=== PATIENT | female | born 1970 | race Asian ===

== ENCOUNTER → 2017-03-21 | Outpatient (CLI) | payer BC ==
[2017-03-21 08:08] LABS: Basophils # (auto) 0 uL; Basophils % (auto) 0.5 % (0.0-2.0); DEFINITIVE VIEW TRANSMISSION; Eosinophils # (auto) 0.1 uL; Eosinophils % (auto) 1.9 % (0.0-7.0); Hemoglobin 9.8 g/dL (12.2-16.2); Mean Corpuscular Hgb Conc. 31.3 g/dL (32.0-36.0); Monocytes # (auto) 0.4 uL; Monocytes % (auto) 7.8 % (0.0-12.0); Neutrophils # (auto) 2.9 uL; White Blood Cell 5.1 10^3/uL (4.4-10.8)
[2017-03-21 08:15] LABS: Hematocrit 31.3 % (36.0-46.0); Lymphocytes # (auto) 1.7 uL; Lymphocytes % (auto) 33.4 % (10.0-50.0); Mean Corpuscular Hemoglobin 21.4 pg (28.0-32.0); Mean Corpuscular Volume 68.6 fL (80.0-100.0); Mean Platelet Volume 6.9 fL (7.4-10.4); Neutrophils % (auto) 56.4 % (37.0-80.0); Platelet Count (auto) 474 10^3/uL (140-450)
[2017-03-21 08:24] LABS: Red Cell Distribution Width 20.4 % (11.6-16.0)
[2017-03-21 08:40] LABS: Urine Bilirubin Negative (Negative); Urine Blood Negative /uL (Negative); Urine Color Colorless (Yellow); Urine Glucose Normal (Normal); Urine Ketone Negative (Negative); Urine Nitrite Negative (Negative); Urine RBC <1 /hpf (0 - 4); Urine Squamous Epithelial Cell FEW /hpf (<5); Urine Urobilinogen Normal (Negative); Urine pH 6.5 (5.0-8.0)
[2017-03-21 09:01] LABS: Albumin 3.7 g/dL (3.4-5.0); BUN/Creatinine Ratio 18.2; Bilirubin, Total 0.5 mg/dL (0.2-1.0); Calcium 8.3 mg/dL (8.5-10.1); Potassium 3.4 mmol/L (3.5-5.1); Total Protein 8.3 g/dL (6.4-8.2)
[2017-03-21 09:16] LABS: Anisocytosis Slight; Hypochromia Moderate; Microcytosis Marked; Platelet Estimate Increased
[2017-03-21 09:17] LABS: Stomatocytes Few
== END | disposition home or self-care (01) ==
LOC: LAB 07:45
PROVIDERS: ATTEND Internal Medicine
DX: Z00.00 Encounter for general adult medical examination without abnormal findings (principal); I10 Essential (primary) hypertension; E78.5 Hyperlipidemia, unspecified; E55.9 Vitamin D deficiency, unspecified
CPT/HCPCS: 36415; 80053; 80061; 81001; 82306; 85025

== ENCOUNTER → 2017-05-21 | Outpatient (CLI) | payer BC ==
[2017-05-21 09:55] LABS: Basophils # (auto) 0.1 uL; Basophils % (auto) 1.4 % (0.0-2.0); CONDITION Y; DEFINITIVE SEE PRINTOUT; Eosinophils # (auto) 0 uL; Eosinophils % (auto) 0.9 % (0.0-7.0); Hematocrit 33.3 % (36.0-46.0); Hemoglobin 10.7 g/dL (12.2-16.2); Lymphocytes # (auto) 1.3 uL; Lymphocytes % (auto) 27.3 % (10.0-50.0); Mean Corpuscular Hemoglobin 22.1 pg (28.0-32.0); Mean Corpuscular Hgb Conc. 32.1 g/dL (32.0-36.0); Mean Corpuscular Volume 68.9 fL (80.0-100.0); Mean Platelet Volume 7.3 fL (7.4-10.4); Monocytes # (auto) 0.3 uL; Monocytes % (auto) 5.7 % (0.0-12.0); Neutrophils # (auto) 3.1 uL; Neutrophils % (auto) 64.7 % (37.0-80.0); Platelet Count (auto) 461 10^3/uL (140-450); White Blood Cell 4.8 10^3/uL (4.4-10.8)
[2017-05-21 10:04] LABS: Red Cell Distribution Width 20.2 % (11.6-16.0)
[2017-05-21 10:35] LABS: Platelet Estimate Increased
[2017-05-21 10:36] LABS: Anisocytosis Slight; Hypochromia Slight; Microcytosis Slight; Ovalocytes FEW
== END | disposition home or self-care (01) ==
LOC: LAB 09:04
PROVIDERS: ATTEND Specialist
DX: N93.9 Abnormal uterine and vaginal bleeding, unspecified (principal)
CPT/HCPCS: 36415; 84443; 84702; 85025

== ENCOUNTER → 2017-07-05 | Outpatient (CLI) | payer BC | END | disposition home or self-care (01) | LOC: LAB 08:57 | PROVIDERS: ATTEND Specialist | DX: N92.6 Irregular menstruation, unspecified (principal) ==

== ENCOUNTER → 2018-02-06 | Outpatient (CLI) | payer BC ==
[2018-02-06 08:33] LABS: Basophils # (auto) 0 uL; Mean Corpuscular Volume 67.3 fL (80.0-100.0); Nucleated Red Blood Cells % 0.1 %
[2018-02-06 08:36] LABS: Basophils % (auto) 0.5 % (0.0-2.0); Eosinophils # (auto) 0.1 uL; Eosinophils % (auto) 1.2 % (0.0-7.0); Lymphocytes # (auto) 1.8 uL; Lymphocytes % (auto) 37.8 % (10.0-50.0); Mean Corpuscular Hgb Conc. 31.3 g/dL (32.0-36.0); Monocytes # (auto) 0.3 uL; Monocytes % (auto) 6.8 % (0.0-12.0); Neutrophils # (auto) 2.6 uL; Neutrophils % (auto) 53.7 % (37.0-80.0); Platelet Count (auto) 425 10^3/uL (140-450); Red Blood Cells 4.76 10^6/uL (4.0-5.20); White Blood Cell 4.8 10^3/uL (4.4-10.8)
[2018-02-06 08:51] LABS: Red Cell Distribution Width 20.1 % (11.8-14.3)
[2018-02-06 13:02] LABS: Albumin 3.8 g/dL (3.4-5.0); Bilirubin, Total 0.5 mg/dL (0.2-1.0); Calcium 8.5 mg/dL (8.5-10.1); Potassium 3.5 mmol/L (3.5-5.1); Total Protein 8.2 g/dL (6.4-8.2)
== END | disposition home or self-care (01) ==
LOC: LAB 07:42
PROVIDERS: ATTEND Physician Assistant
DX: I10 Essential (primary) hypertension (principal); D50.9 Iron deficiency anemia, unspecified; R07.89 Other chest pain
CPT/HCPCS: 36415; 80053; 80061; 85025

== ENCOUNTER → 2019-04-16 | Outpatient (CLI) | payer BC ==
[2019-04-16 10:26] LABS: Basophils # (auto) 0 uL; Monocytes # (auto) 0.2 uL; Red Cell Distribution Width 18.5 % (11.8-14.3)
[2019-04-16 10:31] LABS: Basophils % (auto) 0.8 % (0.0-2.0); Eosinophils # (auto) 0.1 uL; Eosinophils % (auto) 1.4 % (0.0-7.0); Hematocrit 37.5 % (36.0-46.0); Lymphocytes # (auto) 1.5 uL; Lymphocytes % (auto) 42.5 % (10.0-50.0); Mean Corpuscular Hemoglobin 22.9 pg (28.0-32.0); Mean Corpuscular Volume 71.5 fL (80.0-100.0); Neutrophils # (auto) 1.8 uL; Neutrophils % (auto) 49.3 % (37.0-80.0); Nucleated Red Blood Cells % 0.1 %; Platelet Count (auto) 425 10^3/uL (140-450); Red Blood Cells 5.25 10^6/uL (4.0-5.20); White Blood Cell 3.6 10^3/uL (4.4-10.8)
[2019-04-16 11:42] LABS: Albumin 3.7 g/dL (3.4-5.0); Calcium 8.8 mg/dL (8.5-10.1); Potassium 3.5 mmol/L (3.5-5.1)
[2019-04-16 11:46] LABS: BUN/Creatinine Ratio 18.4; Bilirubin, Total 0.4 mg/dL (0.2-1.0); Total Protein 8.8 g/dL (6.4-8.2)
== END | disposition home or self-care (01) ==
LOC: LAB 09:32
PROVIDERS: ATTEND Physician Assistant
DX: D50.9 Iron deficiency anemia, unspecified (principal); K21.9 Gastro-esophageal reflux disease without esophagitis; I10 Essential (primary) hypertension
CPT/HCPCS: 36415; 80053; 80061; 82274; 83540; 83550; 85025

== ENCOUNTER 2019-09-11 04:51 | Inpatient (IN) | payer BC ==
[~2019-09-11] VITALS: Ht 154.9 cm; Wt 63.2 kg
[2019-09-11 05:38] LABS: Urine Bacteria MOD /hpf (None Seen); Urine Blood 2+ /uL (Negative); Urine Mucus FEW (None Seen); Urine Specific Gravity 1.017 (1.001-1.035); Urine WBC 2324 /hpf (0 - 5); Urine WBC Clumps PRESENT /hpf (None Seen)
[2019-09-11 06:35] LABS: Basophils # (auto) 0 uL; Eosinophils # (auto) 0 uL; Hemoglobin 12.6 g/dL (12.2-16.2); Lymphocytes # (auto) 0.9 uL; Monocytes # (auto) 0.5 uL; Neutrophils # (auto) 7.9 uL; Neutrophils % (auto) 84.2 % (37.0-80.0); White Blood Cell 9.4 10^3/uL (4.4-10.8)
[2019-09-11 06:37] LABS: Basophils % (auto) 0.3 % (0.0-2.0); Eosinophils % (auto) 0.1 % (0.0-7.0); Hematocrit 38.6 % (36.0-46.0); Lymphocytes % (auto) 9.7 % (10.0-50.0); Mean Corpuscular Hemoglobin 24.9 pg (28.0-32.0); Mean Corpuscular Hgb Conc. 32.7 g/dL (32.0-36.0); Mean Corpuscular Volume 76.1 fL (80.0-100.0); Monocytes % (auto) 5.7 % (0.0-12.0); Platelet Count (auto) 391 10^3/uL (140-450); Red Blood Cells 5.08 10^6/uL (4.0-5.20); Red Cell Distribution Width 16.8 % (11.8-14.3)
[2019-09-11 06:53] LABS: Albumin 3.6 g/dL (3.4-5.0); BUN/Creatinine Ratio 13.3; Calcium 8.8 mg/dL (8.5-10.1); Potassium 3.6 mmol/L (3.5-5.1)
[2019-09-11 06:56] LABS: Bilirubin, Total 0.4 mg/dL (0.2-1.0); Total Protein 8.5 g/dL (6.4-8.2)
[2019-09-11] MEDS ORDERED: SODIUM CHLORIDE 0.9% 1,000 ML IV ONE ×2 (08:38)
[2019-09-11] MEDS ORDERED: cefTRIAXone 1GM/50ML D5W 50 ML IV ONE ×2 (08:45→09:15)
[2019-09-11] MEDS ORDERED: KETOROLAC TROMETH 30 MG/ML 1ML VIAL IV ONE (08:45)
[2019-09-11] MEDS ORDERED: ONDANSETRON HCL 4 MG/2 ML VIAL IV ONE (08:45)
[2019-09-11] MEDS ORDERED: TEMAZEPAM 15 MG CAP PO PRN (09:15)
[2019-09-11] MEDS ORDERED: ACETAMINOPHEN 500 MG TAB PO PRN (09:15)
[2019-09-11] MEDS ORDERED: PROMETHAZINE HCL 25 MG/ML 1ML IV PRN (09:15)
[2019-09-11] MEDS ORDERED: traMADol HCL 50 MG TAB PO PRN (09:15)
[2019-09-11] MEDS ORDERED: KETOROLAC TROMETH 30 MG/ML 1ML VIAL IV PRN (09:15)
[2019-09-11] MEDS: SODIUM CHLORIDE 0.9% 1,000 ML IV SCH ×2 (09:17→18:54)
[2019-09-11] MEDS: cefTRIAXone 1GM/50ML D5W 50 ML IV SCH (09:18)
--- NOTE | 2019-09-11 09:53 | NUR ---
MS admit from ER KIRILL MENDEZ admitted to [facility] after SBAR received. Patient oriented to primary RN, unit, room, bed, and unit policies regarding patient care and visiting hours. Patient weighed by bed scale and encouraged to call if she need something. All questions and concerns addressed, patient verbalized understanding.
[2019-09-11 10:10] VITALS: BP 127/81
[2019-09-11] MEDS: FAMOTIDINE 20 MG TAB PO SCH ×2 (10:23→22:06)
[2019-09-11 12:40] LABS: INR 0.96 (0.9-1.15)
[2019-09-11 13:00] VITALS: BP 126/74
[2019-09-11] MEDS ORDERED: AMLO10TA13 PO (13:45)
[2019-09-11 17:00] VITALS: BP 136/87
--- NOTE | 2019-09-11 19:39 | NUR ---
RECEIVED PATIENT FROM DAY SHIFT RN.. PATIENT RESTING IN BED. NO S/S OF DISTRESS NOTED. C/O LEFT FLANK PAIN @ 4/10. NO REQUEST FOR PAIN MEDICATION. INSTRUCTED PATIENT ON PAIN MANAGEMENT AND ENCOURAGED PATIENT TO CALL FOR PAIN MEDICATION IF SHE COULD NOT TOLERATE THE PAIN. PATIENT VERBALIZED UNDERSTANDING. REINFORCED NPO AFTER MIDNIGHT FOR PROCEDURE TOMORROW. POC INSTRUCTED AND ENCOURAGED PATIENT TO CALL FOR HYDROLOGIST IF NEEDED. BED IN LOWEST POSITION WITH SIDE RAILS UP X 2. CALL RIVERA WITHIN REACH. CONTINUE TO MONITOR FOR CHANGES Q1H AND PRN.
[2019-09-11 22:00] VITALS: BP 144/74
--- NOTE | 2019-09-12 00:30 | NUR ---
NPO FROM NOW ON. FOOD AND WATER REMOVED FROM BEDSIDE. PATIENT VERBALIZED UNDERSTANDING. CONTINUE TO MONITOR.
--- NOTE | 2019-09-12 03:05 | NUR ---
PATIENT SLEEPING. NO S/S OF DISTRESS NOTED. CONTINUE CARE.
[2019-09-12] MEDS: SODIUM CHLORIDE 0.9% 1,000 ML IV SCH ×3 (04:07→23:45)
--- NOTE | 2019-09-12 05:51 | NUR ---
CHG WIPE DONE. PATIENT TOLERATED WELL. DENIED ANY PAIN FOR NOW. REINFORCED NPO NOW. PATIENT VERBALIZED UNDERSTANDING. CONTINUE TO MONITOR.
[2019-09-12 06:23] VITALS: BP 157/86
--- NOTE | 2019-09-12 08:00 | NUR ---
RECEIVED PATIENT ALERT AND ORIENTED X4, NOT IN DISTRESS, CLEAR LS IN BILATERAL LUNG LOBES, RR=18 ST=98% IN RA, HEART R=80, DENIED CHEST PAIN OR SOB, ABDOMEN SOFT AND FLAT, WITH ACTIVE BS, LAST BM=09/10/19, KEEP NPO ORDERED, SKIN INTACT WARM TO TOUCH, RADIAL AND PEDAL PULSES PALPABLE, CAP REFILL <3 SECONDS, RESTING ON BED, HEAD OF BED ELEVATED, BED ON LOWER POSITION RAILS UP X2, CALL LIGHT ON REACH, PENDING FRAME REPAIRER, FAMILY AT BED SIDE, WILL CONTINUE MONITORING.
[2019-09-12 09:00] VITALS: BP 151/81
[2019-09-12] MEDS: FAMOTIDINE 20 MG TAB PO SCH ×2 (10:00→21:36)
--- NOTE | 2019-09-12 10:00 | NUR ---
CONSENT AND CHECK LIST COMPLETE AND ON CHART, WENT ON BED TO CORE MOUNTER, TOLERATED WELL, WILL CONTINUE FOLLOWING UP.
[2019-09-12] MEDS ORDERED: LIDOCAINE 2%HCL (LOCAL ANESTH.) INJ 20ML MDV ONE (10:22)
[2019-09-12] MEDS ORDERED: IOHEXOL 350 MG/ML 100ML IJ ONE (10:22)
[2019-09-12] MEDS ORDERED: fentaNYL CITRATE 100 MCG/2 ML VL ONE (10:27)
[2019-09-12] MEDS ORDERED: MIDAZOLAM HCL 1MG/1ML-2 ML VIAL ONE (10:28)
[2019-09-12] MEDS ORDERED: cefTRIAXone 1GM/50ML D5W 50 ML IV ONE (10:31)
[2019-09-12] MEDS ORDERED: ONDANSETRON HCL 4 MG/2 ML VIAL ONE (11:54)
[2019-09-12] MEDS ORDERED: ONDANSETRON HCL 4 MG/2 ML VIAL IV ONE (12:00)
--- NOTE | 2019-09-12 13:00 | NUR ---
CAME BACK FROM ADMINISTRATIVE AND PROGRAM SPECIALIST, ALERT AND ORIENTED, DENIED PAIN, LT. FLANK NEPHRO TUB IN PLACE AND PATENT, DRESSING DRY AND INTACT, DRAINING [place]IS COLORED DRAIN, VS T=97.8 RR=16, SAT=96% P=73 BP= 123/62, LUNCH TRAY PROVIDED, AT BED SIDE, WILL CONTINUE MONITORING.
--- NOTE | 2019-09-12 14:30 | NUR ---
OUT OF BED TO BR, TOLERATED WELL, 200CC LIGHT BROWN COLORED DRAIN FROM NEPHRO TUBE NOTED, RESTING ON BED, LT W IV INFLTRATED AND D/C, TOLERATE WELL, REFUSED NEW IV INSERTION.
[2019-09-12 17:00] VITALS: BP 157/92
--- NOTE | 2019-09-12 19:15 | NUR ---
450CC OUR PUT FROM [facility], NEW IV SITE INSERTED ON RT. LOWER ARM. TOLERATED WELL, RESUMED IV FLUID ORDERED, RESTING ON BED, FAMILY AT BED SIDE, REPORT WAS GIVEN TO THE LIBRARY CIRCULATION CLERK RN.
--- NOTE | 2019-09-12 19:31 | NUR ---
RECEIVED PATIENT FROM DAY SHIFT RN.. PATIENT RESTING IN BED. NO S/S OF DISTRESS NOTED. C/O LEFT FLANK PAIN @ 4/10. NO REQUEST FOR PAIN MEDICATION. INSTRUCTED PATIENT ON PAIN MANAGEMENT AND ENCOURAGED PATIENT TO CALL FOR PAIN MEDICATION IF SHE COULD NOT TOLERATE THE PAIN. PATIENT VERBALIZED UNDERSTANDING. NEPHROSTOMY IN PLACE DRAINING GRAVITY WITH LIGHT PINK URINE. POC INSTRUCTED AND ENCOURAGED PATIENT TO CALL FOR SENIOR DESIGN ENGINEERING SPECIALIST IF NEEDED. BED IN LOWEST POSITION WITH SIDE RAILS UP X 2. CALL RIVERA WITHIN REACH. CONTINUE TO MONITOR FOR CHANGES Q1H AND PRN.
[2019-09-12 21:31] VITALS: BP 135/91
--- NOTE | 2019-09-12 22:21 | NUR ---
EMPTIED URINE 400ML. CONTINUE TO MONITOR.
[2019-09-13] MEDS ORDERED: DOCUSATE SOD 100 MG CAP PO PRN (00:15)
--- NOTE | 2019-09-13 00:16 | NUR ---
PATIENT REQUESTED FOR STOOL SOFTENER, HOSPITALIST CALLED BACK AND ORDER RECEIVED. CONTINUE TO MONITOR.
--- NOTE | 2019-09-13 02:41 | NUR ---
PATIENT SLEEPING. NO S/S OF DISTRESS NOTED. CONTINUE CARE.
[2019-09-13 05:46] VITALS: BP 128/84
--- NOTE | 2019-09-13 05:52 | NUR ---
PATIENT WOKE UP AND DENIED PAIN FOR NOW. NEPHROSTOMY IN PLACE DRAINING GRAVITY. TOTAL OUTPUT FROM NEPHROSTOMY 900ML LIGHT PINK URINE. CONTINUE TO MONITOR.
[2019-09-13 05:56] LABS: Basophils # (auto) 0 uL; Eosinophils # (auto) 0 uL; Hemoglobin 10.9 g/dL (12.2-16.2); Monocytes # (auto) 0.3 uL; Neutrophils # (auto) 3.1 uL; White Blood Cell 4.9 10^3/uL (4.4-10.8)
[2019-09-13 06:02] LABS: Basophils % (auto) 0.3 % (0.0-2.0); Eosinophils % (auto) 0.9 % (0.0-7.0); Hematocrit 33.1 % (36.0-46.0); Lymphocytes # (auto) 1.4 uL; Lymphocytes % (auto) 29.3 % (10.0-50.0); Mean Corpuscular Hgb Conc. 32.9 g/dL (32.0-36.0); Mean Corpuscular Volume 75.9 fL (80.0-100.0); Monocytes % (auto) 6.1 % (0.0-12.0); Neutrophils % (auto) 63.4 % (37.0-80.0); Platelet Count (auto) 368 10^3/uL (140-450); Red Blood Cells 4.36 10^6/uL (4.0-5.20)
[2019-09-13 06:23] LABS: BUN/Creatinine Ratio 10.7; Calcium 8.1 mg/dL (8.5-10.1); Potassium 3.2 mmol/L (3.5-5.1)
--- NOTE | 2019-09-13 07:00 | NUR ---
OPENING SHIFT NOTE Assumed care of the patient from the revenue director RN. The patient is A&Ox4, no signs or symptoms of distress. The patient's left nephrostomy is draining pink tinged urine and incision site is asymptomatic, clean, dry and intact. Educated the patient on POC and patient verbalized understanding. The patient's call light is within reach and bed is in the lowest, locked position. Will round hourly and continue to monitor.
[2019-09-13 08:00] VITALS: BP 158/95
[2019-09-13] MEDS: FAMOTIDINE 20 MG TAB PO SCH (09:47)
[2019-09-13] MEDS: SODIUM CHLORIDE 0.9% 1,000 ML IV SCH (09:47)
[2019-09-13] MEDS: cefTRIAXone 1GM/50ML D5W 50 ML IV SCH (09:47)
--- NOTE | 2019-09-13 12:55 | NUR ---
Discharge instructions given as ordered. Encourage to follow up with PMD as instructed. All questions and concerns addressed. Patient verbalized understanding. Medication reconciliation form completed and copy given to patient. Patient given prescription for Levaquin and educted to take the antibiotic until completed. The patient was given Dr. Pardeep Reeves's office address and phone number to call and get appointment for 1 week after discharge. Patient was educated on nephrostomy care. Patient taken to vehicle via wheelchair with all personal belongings, accompanied by staff and family member. No distress noted at time of departure.
== END 2019-09-13 13:14 | disposition home or self-care (01) | DRG 690 ==
LOC: ER 04:51 → OVERFLOW 04:52 → WEST WING 09:56
PROVIDERS: ADMIT Internal Medicine; ATTEND Internal Medicine
PROC: 0T9130Z Drainage of Left Kidney with Drainage Device, Percutaneous Approach (ICD-10-PCS; principal; 2019-09-12)
PROC: BT1F1ZZ Fluoroscopy of Left Kidney, Ureter and Bladder using Low Osmolar Contrast (ICD-10-PCS; 2019-09-12)
PROC: BT42ZZZ Ultrasonography of Left Kidney (ICD-10-PCS; 2019-09-12)
DX: N13.6 Pyonephrosis (principal); E86.0 Dehydration; I10 Essential (primary) hypertension; Z80.6 Family history of leukemia
CPT/HCPCS: 36415; 74176; 76942; 80048; 80053; 81001; 81025; 85025; 85610; 87086; 96361; 96365; 96375; G0378; J0696; J1885; J2250; J2405

== ENCOUNTER 2021-07-03 09:26 | Emergency (ER) | payer BC ==
[~2021-07-03] VITALS: Ht 165.1 cm; Wt 59.0 kg
[~2021-07-03 09:26] MED LIST: AMLO-496 PO
[2021-07-03] MEDS ORDERED: KETOROLAC TROMETH 60MG/2ML VIAL IM ONE (11:00)
[2021-07-03] MEDS ORDERED: cefTRIAXone SOD 1,000 MG VL IM ONE (11:00)
[2021-07-03 11:37] VITALS: BP 140/90
== END 2021-07-03 11:39 | disposition home or self-care (01) ==
LOC: ER 09:26
DX: L08.9 Local infection of the skin and subcutaneous tissue, unspecified (principal); I10 Essential (primary) hypertension
CPT/HCPCS: 96372; 99284; J0696; J1885

== ENCOUNTER 2022-09-03 17:14 | Emergency (ER) | payer BC ==
[~2022-09-03] VITALS: Ht 152.4 cm; Wt 67.4 kg
[2022-09-03] MEDS ORDERED: cloNIDine HCL 0.1 MG TAB PO ONE (17:45)
[2022-09-03 20:19] VITALS: BP 162/96
[2022-09-03] MEDS ORDERED: CEPH-510 PO (20:45)
== END 2022-09-03 20:55 | disposition home or self-care (01) ==
LOC: ER 17:17
DX: L03.211 Cellulitis of face (principal); I10 Essential (primary) hypertension